=== PATIENT | male | born 1965 | race Caucasian/White ===

== ENCOUNTER 2017-02-11 12:07 | Emergency (ER) | payer OTHER ==
[~2017-02-11 12:07] MED LIST: CYCLOBENZAPRINE10 MG PO; IBUPROFEN400 MG PO; METOPROLOL TART25 MG PO; PERCOCET1 TA1 PO; SIMVASTATIN40 MG
--- NOTE | 2017-02-11 15:55 | DIAGNOSTIC IMAGING REPORT ---
PROCEDURE: ABDOMEN/PELVIS WITH CONTRAST CLINICAL INDICATION: ABDOMINAL PAIN right flank and right lower quadrant pain. TECHNIQUE: 125 ml of Isovue 300 were injected intravenously and axial images were obtained of the abdomen and pelvis with sagittal and coronal reformations. COMPARISON: None. FINDINGS: ABDOMEN: Minor circumferential distal esophageal thickening and edema. Clear lung bases. Normal sized heart. No hiatal hernia. Multiple indeterminate cystic structures arising from the right kidney, largest arising from the upper pole measuring 5.6 cm with Hounsfield units of 25. Tiny cortical cysts in the left kidney. The liver, gallbladder, adrenal glands, and pancreas are normal. Sub-centimeter ill-defined hypodensity in the cranial portion of the spleen. The abdominal aorta is normal in its course and caliber. Trace atherosclerosis. There are no suspicious calcifications, retroperitoneal adenopathy or masses. The stomach, upper bowel loops, and mesentery are normal. Intact anterior abdominal wall. No free fluid or inflammation. PELVIS: Multiple surgical tacks of bilateral inguinal hernia repairs. The appendix and pelvic small bowel loops are normal. Normal to minimally increased amount of stool in the colon and rectum. The prostate gland, seminal vesicles, urinary bladder, and pelvic vessels are normal. No adenopathy, free fluid, or pelvic mass. Intact osseous structures. IMPRESSION: 1. No acute process. 2. Mild distal esophageal thickening and edema suggestive of esophagitis. 3. Bilateral renal cystic structures, probably simple cysts but indeterminate given the presence of intravenous contrast. 4. Bilateral inguinal hernia repairs. 5. Findings called to the emergency room. All CT scans at this facility use dose modulation, iterative reconstruction, and/or weight-based dosing when appropriate to reduce radiation dose to as low as reasonably achievable.
--- NOTE | 2017-02-11 16:16 | ED NURSING NOTES ---
Clinical Report - Nurses [facility] [address] [place] [address] 02/11/2017 12:09 Patient: CORINA YATES TRIAGE Triage time 12:16. Acuity: LEVEL 3. Chief Complaint: ABDOMINAL PAIN. SEPSIS SCREEN: Sepsis Screen. Negative (no infection suspected/documented). --12:23 Kenyatta Avendano R.N. 12:16 02/11/17. BP: 120/75. HR: 80. RR: 16. O2 saturation: 98%. Temp: 98.3 F. Pain level now: 05/19. --12:23 Kenyatta Avendano R.N. Weight: 95.2 kg stated. Height/Length: 73 inches Per Patient. BMI: 27.7. --12:18 Kenyatta Avendano R.N. Medications Metoprolol Tartrate Oral 50 mg, daily . Simvastatin Oral 20 mg, daily. --12:20 Kenyatta Avendano R.N. BusPIRone HCl Oral 50 mg, daily as needed. --12:21 Kenyatta Avendano R.N. Sertraline HCl Oral, as needed. --12:21 Kenyatta Avendano R.N. Allergies No Known Drug Allergy. --12:20 Kenyatta Avendano R.N. History Arrived by private vehicle. Historian: patient. Primary physician ([facility]). Worsened while emotionally upset. Symptoms still present (about 3 weeks ago). Relates location as in the right abdomen. He has had nausea. It is described as radiating to the right lower back. 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 (was given trazadone). PAST MEDICAL HX: Immunizations: up-to-date. SOCIAL HX: Never smoker. Occasional alcohol use. Patient is a recovering alcoholic. No drug use. SELF HARM ASSESSMENT: A self harm assessment was performed. The patient answered "no" to the question "Do you have thoughts of harming or killing yourself?". FALL RISK ASSESSMENT: Fall risk assessment completed. No fall risk identified. NUTRITIONAL RISK ASSESSMENT: The nutritional risk assessment revealed no deficiencies. FUNCTIONAL ASSESSMENT: Functional assessment: no impairments noted. LEARNING NEEDS ASSESSMENT: The learning needs assessment revealed no barriers. SKIN INTEGRITY ASSESSMENT: Skin integrity risk assessment completed. No skin integrity risk identified. --12:23 Kenyatta Avendano R.N. Interventions ID band on patient. To room. --12:23 Kenyatta Avendano R.N. PHYSICAL ASSESSMENT Ambulatory to room. Patient gowned. GENERAL / NEURO / PSYCH: Alert. Oriented X 4. Appears in no acute distress. RESPIRATORY: Respirations not labored. CVS: Normal sinus rhythm noted. Capillary refill less than 2 seconds. GI / : Abdominal tenderness. Rebound tenderness in the suprapubic area and lower abdomen. SKIN: Skin is warm and dry. --12:24 Kenyatta Avendano R.N. NURSING PROGRESS NOTES Patient gowned. Two patient identifiers checked. Call light placed in reach. Bed placed in lowest position. Brakes of bed on. Patient ready for evaluation- ED physician notified. --12:25 Kenyatta Avendano R.N. 12:42 02/11/2017 Site #1 started via IV in the right hand with an 20g angiocath, with aseptic technique and good blood return; one attempt. Blood drawn: rainbow set. Labeled in the presence of the patient and sent to the lab. Saline lock flushed with 10 mL saline. --12:42 Kenyatta Avendano R.N. 13:14 02/11/2017 Started bag #1 1000 mL IV Fluids IV NS (Saline); at 1000 mL/hr over 1 hour(s) via site #1 via IV pump. Allergies verified and confirmed 5 rights. IV patency established. IV site checked: no pain, redness, or swelling. IV flushed thoroughly pre- and post-medication administration. Completed per protocol. --13:14 Kenyatta Avendano R.N. 14:15. Patient ID band checked for patient name and birthdate: patient confirmed. Instructions provided to collect clean catch urine and patient verbalized understanding. Clean catch urine collected with return of yellow-colored clear urine; odor is normal; sample sent to lab for urinalysis and culture. Specimen labeled in the presence of the patient. --14:27 Libby Lucero R.N. 15:01 02/11/17. Patient walked to AR with tech. --15:01 Charley Page R.N. <<KODY ENTRY-- 15:26 02/11/2017 Two (2) unsuccessful IV access attempts including the right wrist and left hand. Applied bandaid. --15:41 Kenyatta Avendano R.N. --END STRIKE>> Charted on wrong patient. --15:42 Kenyatta Avendano R.N. <<STRICKEN ENTRY-- 15:33 02/11/2017 IV Saline Lock Drip IV Discontinued: bag #1 completed. Total amount infused: 1000 mL. --15:33 Kenyatta Avendano R.N. --END STRIKE>> Correction. --15:34 Kenyatta Avendano R.N. 15:34 02/11/2017 IV Fluids IV NS Discontinued: bag #1 completed. Total amount infused: 1000 mL. --15:34 Kenyatta Avendano R.N. 15:38 02/11/2017 Started bag #2 1000 mL IV Fluids IV NS (Saline); at 1000 mL/hr over 1 hour(s) via site #1 --15:38 Kenyatta Avendano R.N. Patient walked back to ED from AR with tech. ([id number]). --15:38 Kenyatta Avendano R.N. DISPOSITION / DISCHARGE 16:38 02/11/2017 Site #1 removed upon discharge. Pressure dressing applied. --16:38 Kenyatta Avendano R.N. 16:38 02/11/2017 IV Fluids IV NS Discontinued: bag #2 discontinued upon discharge. Total amount infused: 900 mL. --16:38 Kenyatta Avendano R.N. 16:37 02/11/17. BP: 122/78. HR: 80. RR: 16. O2 saturation: 98%. Temp: 97.7 F. Pain level now: 04/18. --16:40 Kenyatta Avendano R.N. Discharge instructions provided and reviewed with the patient. Reviewed medication(s). Note given. Patient verbalized understanding. Written instructions provided in [place]. The patient was discharged by the physician. He was discharged home and accompanied by family. He left the Emergency Department ambulatory and via private vehicle. Family member driving. --16:40 Kenyatta Avendano R.N. Departure time: 16:40. --16:40 Kenyatta Avendano R.N. Locked/Released at 02/11/2017 19:25 by Kenyatta Avendano R.N.
--- NOTE | 2017-02-11 16:16 | ED CLINICAL REPORT ---
Clinical Report - Physicians/Mid Levels [facility] [address] [place] [address] 02/11/2017 12:09 Patient: CORINA YATES Time Seen: 12:29. Arrived- By private vehicle. Historian- patient. HISTORY OF PRESENT ILLNESS Chief Complaint: FLANK PAIN. At its maximum, severity described as 10 / 10. When seen in the E.D., it was gone. Modifying factors- worsened by movement, walking and cough. Relieved by rest. It is described as sharp and it is described as located in the right flank and radiating to the groin. This started about 3 weeks ago. It was abrupt in onset and has been intermittent and waxing/waning. No nausea, loss of appetite, vomiting or diarrhea. No recent travel. REVIEW OF SYSTEMS No chills, fever, sweats, calf pain or chest pain. No pedal edema, black stools, bloody stools, constipation or diarrhea. No nausea, vomiting or urinary problems. He has had a cough. He has had mild difficulty breathing (chronically). It has been similar to previous symptoms. All systems otherwise negative, except as recorded above. PAST HISTORY PCP - [facility]. Problems: Paresthesia. Stress. Mandibular Fracture. Contusion. Radius Fracture. Fall. AC Joint Separation. Suicidal Ideation. Sprain. Chest Pain. Fractured Metacarpal. Hypercholesterolemia. Hyperlipidemia. Alcoholism. Hypertension. Alcohol Intoxication. Substance Abuse. Additional Surgeries: Finger amputation, left index. Hernia Repair. Inguinal Hernia Repair. Medications: Sertraline HCl Oral, as needed. BusPIRone HCl Oral 50 mg, daily as needed. Metoprolol Tartrate Oral 50 mg, daily . Simvastatin Oral 20 mg, daily. Allergies: No Known Drug Allergy. SOCIAL HISTORY Never smoker. Alcohol use. Patient is a longstanding alcoholic. No drug use. FAMILY HISTORY Cancer in first-degree relative (father and sibling). mother due to EtOH. ADDITIONAL NOTES The nursing notes have been reviewed. PHYSICAL EXAM Vital Signs: 02/11/2017 12:16 BP: 120/75. HR: 80. RR: 16. O2 saturation: 98%. Temp: 98.3 F. Pain level now: 05/19. Have been reviewed. Appearance: Alert. Eyes: Pupils equal, round and reactive to light. ENT: Pharynx normal. Neck: Normal inspection. Neck supple. CVS: Normal heart rate and rhythm. Heart sounds normal. Respiratory: No respiratory distress. Breath sounds normal. Abdomen: Soft. Mild tenderness in the right lower quadrant. Bowel sounds normal. No organomegaly. No mass. Back: Normal inspection. No CVA tenderness. Skin: Skin warm and dry. Normal skin color. Normal skin turgor. Extremities: Extremities exhibit normal ROM. No calf tenderness. No lower extremity edema. LABS, X-RAYS, AND EKG Abdominal CT: IMPRESSION: 1. No acute process. 2. Mild distal esophageal thickening and edema suggestive of esophagitis. 3. Bilateral renal cystic structures, probably simple cysts but indeterminate given the presence of intravenous contrast. 4. Bilateral inguinal hernia repairs. The study was interpreted contemporaneously by me and discussed with the radiologist. Laboratory Tests: UA-Culture if indicated: (DEENA: 02/11/2017 14:15) ( [facility] 02/11/2017 14:35) Final results Test Result Flag Units (Reference) URINE COLOR YELLOW URINE APPEARANCE CLEAR URINE GLUCOSE NEGATIVE (NEGATIVE) URINE BILIRUBIN NEGATIVE (NEGATIVE) URINE KETONE NEGATIVE (NEGATIVE) URINE SPECIFIC GRAVITY 1.015 (1.010-1.030) URINE PH 7.5 (5.0-8.0) URINE PROTEIN NEGATIVE (NEGATIVE) URINE UROBILINOGEN 0.2 EU/dL (0.2-1.0) URINE NITRITE NEGATIVE (NEGATIVE) URINE BLOOD NEGATIVE (NEGATIVE) URINE LEUK ESTERASE TRACE (NEGATIVE) URINE RBC NONE SEEN rbc/hpf (0-1) URINE WBC 0-1 wbc/hpf (0-1) URINE EPITHELIAL CELLS RARE EPI/hpf (0-5) URINE BACTERIA NONE SEEN (NONE SEEN) URINE COMMENT CULTURE INDICATED URINE CULTURES ARE SET-UP BASED ON THE FOLLOWING CRITERIA:POSITIVE NITRITEPOSITIVE LEUKOCYTE ESTERASEGREATER THAN 10 WHITE BLOOD CELLSMODERATE (2+) OR GREATER BACTERIA CBC w Diff: (DEENA: 02/11/2017 12:40) ( [facility] 02/11/2017 12:51) Final results Test Result Flag Units (Reference) WHITE BLOOD COUNT 3.9 L K/uL (4.5-11.5) RED BLOOD COUNT 4.41 L M/uL (4.50-5.90) HEMOGLOBIN 13.7 gm/dL (13.5-17.5) HEMATOCRIT 40.4 L % (41.0-53.0) MEAN CELL VOLUME 92 fL (80-100) MEAN CORPUSCULAR HGB 31 pg (26-34) MEAN CORPUSCULAR HGB CONC 34 g/dL (31-37) RED CELL DISTRIBUTION WIDTH 16.2 H % (11.6-14.8) PLATELET COUNT 171 K/uL (150-400) NEUTROPHIL % 37.1 L % (50-75) LYMPH % 50.1 H % (25-40) MONO % 9.6 % (3-14) EOSINOPHIL % 2.1 % (0-4) BASOPHIL % 1.1 % (0-2) CMP: (DEENA: 02/11/2017 12:40) ( Msg[facility]cvd 02/11/2017 13:02) Final results Test Result Flag Units (Reference) GLUCOSE 91 mg/dL (70-110) BUN 11 mg/dL (7-18) CREATININE 0.8 mg/dL (0.6-1.3) Estimated GFR >60 mL/min Estimated GFR- >60 mL/min Note: Persistent reduction over 3 months in eGFR<60 mL/min/1.73 m2 defines CKD. Patients with eGFR values>=60 mL/min/1.73 m2 may also have CKD if evidence ofpersistent proteinuria. Additional information may be foundat www.kidney.org. SODIUM 144 mmol/L (136-145) POTASSIUM 3.8 mmol/L (3.5-5.1) CHLORIDE 105 mmol/L (98-107) CARBON DIOXIDE 32 mmol/L (21-32) CALCIUM 8.6 mg/dL (8.5-10.1) TOTAL PROTEIN 7.4 g/dL (6.4-8.2) ALBUMIN 4.0 g/dL (3.3-5.0) BILIRUBIN, TOTAL 0.2 mg/dL (0.0-1.0) ALKALINE PHOSPHATASE 58 U/L (46-116) AST (SGOT) 21 U/L (15-37) ALT (SGPT) 31 U/L (12-78) LIPASE 161 U/L (73-393) AMYLASE 58 U/L (25-115) . PROGRESS AND PROCEDURES Course of Care: Patient is stable. Patient/family counseled. Old medical records reviewed. Disposition: Discharged. Condition: stable. CLINICAL IMPRESSION Chronic right lower quadrant abdominal pain of unknown cause. Neutropenia. INSTRUCTIONS No driving or operating machinery while taking medication. Drink plenty of fluids. No alcohol. Warnings: Further evaluation is necessary in order to recheck abnormal lab. It is very important to follow up with a physician. GENERAL WARNINGS: Return or contact your physician immediately if your condition worsens or changes unexpectedly, if not improving as expected, or if other problems arise. Your Current Medications: CONTINUE TAKING THE FOLLOWING MEDICATIONS: BusPIRone HCl Oral : 50 mg daily, prn. Metoprolol Tartrate Oral : 50 mg daily. Sertraline HCl Oral : prn. Simvastatin Oral : 20 mg daily. Prescription Medications: Ultram 50 mg: take 1-2 orally every 6 hours as needed for pain. Dispense ten (10). Substitution is permissible. Follow-up: Follow up with a progress worker- as recommended by your primary care physician. Understanding of the discharge instructions verbalized by patient. Follow-up with: [facility], , , [address], , [place], [address] Follow up tomorrow. Call for an appointment. (Electronically signed by Len Bray MD 02/11/2017 20:26)
--- NOTE | 2017-02-11 16:16 | ED NURSING NOTES ---
Clinical Report - Nurses [facility] [address] [place] [address] 02/11/2017 12:09 Patient: CORINA YATES TRIAGE Triage time 12:16. Acuity: LEVEL 3. Chief Complaint: ABDOMINAL PAIN. SEPSIS SCREEN: Sepsis Screen. Negative (no infection suspected/documented). --12:23 Kenyatta Avendano R.N. 12:16 02/11/17. BP: 120/75. HR: 80. RR: 16. O2 saturation: 98%. Temp: 98.3 F. Pain level now: 05/19. --12:23 Kenyatta Avendano R.N. Weight: 95.2 kg stated. Height/Length: 73 inches Per Patient. BMI: 27.7. --12:18 Kenyatta Avendano R.N. Medications Metoprolol Tartrate Oral 50 mg, daily . Simvastatin Oral 20 mg, daily. --12:20 Kenyatta Avendano R.N. BusPIRone HCl Oral 50 mg, daily as needed. --12:21 Kenyatta Avendano R.N. Sertraline HCl Oral, as needed. --12:21 Kenyatta Avendano R.N. Allergies No Known Drug Allergy. --12:20 Kenyatta Avendano R.N. History Arrived by private vehicle. Historian: patient. Primary physician ([facility]). Worsened while emotionally upset. Symptoms still present (about 3 weeks ago). Relates location as in the right abdomen. He has had nausea. It is described as radiating to the right lower back. 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 (was given trazadone). PAST MEDICAL HX: Immunizations: up-to-date. SOCIAL HX: Never smoker. Occasional alcohol use. Patient is a recovering alcoholic. No drug use. SELF HARM ASSESSMENT: A self harm assessment was performed. The patient answered "no" to the question "Do you have thoughts of harming or killing yourself?". FALL RISK ASSESSMENT: Fall risk assessment completed. No fall risk identified. NUTRITIONAL RISK ASSESSMENT: The nutritional risk assessment revealed no deficiencies. FUNCTIONAL ASSESSMENT: Functional assessment: no impairments noted. LEARNING NEEDS ASSESSMENT: The learning needs assessment revealed no barriers. SKIN INTEGRITY ASSESSMENT: Skin integrity risk assessment completed. No skin integrity risk identified. --12:23 Kenyatta Avendano R.N. Interventions ID band on patient. To room. --12:23 Kenyatta Avendano R.N. PHYSICAL ASSESSMENT Ambulatory to room. Patient gowned. GENERAL / NEURO / PSYCH: Alert. Oriented X 4. Appears in no acute distress. RESPIRATORY: Respirations not labored. CVS: Normal sinus rhythm noted. Capillary refill less than 2 seconds. GI / : Abdominal tenderness. Rebound tenderness in the suprapubic area and lower abdomen. SKIN: Skin is warm and dry. --12:24 Kenyatta Avendano R.N. NURSING PROGRESS NOTES Patient gowned. Two patient identifiers checked. Call light placed in reach. Bed placed in lowest position. Brakes of bed on. Patient ready for evaluation- ED physician notified. --12:25 Kenyatta Avendano R.N. 12:42 02/11/2017 Site #1 started via IV in the right hand with an 20g angiocath, with aseptic technique and good blood return; one attempt. Blood drawn: rainbow set. Labeled in the presence of the patient and sent to the lab. Saline lock flushed with 10 mL saline. --12:42 Kenyatta Avendano R.N. 13:14 02/11/2017 Started bag #1 1000 mL IV Fluids IV NS (Saline); at 1000 mL/hr over 1 hour(s) via site #1 via IV pump. Allergies verified and confirmed 5 rights. IV patency established. IV site checked: no pain, redness, or swelling. IV flushed thoroughly pre- and post-medication administration. Completed per protocol. --13:14 Kenyatta Avendano R.N. 14:15. Patient ID band checked for patient name and birthdate: patient confirmed. Instructions provided to collect clean catch urine and patient verbalized understanding. Clean catch urine collected with return of yellow-colored clear urine; odor is normal; sample sent to lab for urinalysis and culture. Specimen labeled in the presence of the patient. --14:27 Libby Lucero R.N. 15:01 02/11/17. Patient walked to OR with tech. --15:01 Charley Page R.N. <<KODY ENTRY-- 15:26 02/11/2017 Two (2) unsuccessful IV access attempts including the right wrist and left hand. Applied bandaid. --15:41 Kenyatta Avendano R.N. --END STRIKE>> Charted on wrong patient. --15:42 Kenyatta Avendano R.N. <<STRICKEN ENTRY-- 15:33 02/11/2017 IV Saline Lock Drip IV Discontinued: bag #1 completed. Total amount infused: 1000 mL. --15:33 Kenyatta Avendano R.N. --END STRIKE>> Correction. --15:34 Kenyatta Avendano R.N. 15:34 02/11/2017 IV Fluids IV NS Discontinued: bag #1 completed. Total amount infused: 1000 mL. --15:34 Kenyatta Avendano R.N. 15:38 02/11/2017 Started bag #2 1000 mL IV Fluids IV NS (Saline); at 1000 mL/hr over 1 hour(s) via site #1 --15:38 Kenyatta Avendano R.N. Patient walked back to ED from OR with tech. ([id number]). --15:38 Kenyatta Avendano R.N. DISPOSITION / DISCHARGE 16:38 02/11/2017 Site #1 removed upon discharge. Pressure dressing applied. --16:38 Kenyatta Avendano R.N. 16:38 02/11/2017 IV Fluids IV NS Discontinued: bag #2 discontinued upon discharge. Total amount infused: 900 mL. --16:38 Kenyatta Avendano R.N. 16:37 02/11/17. BP: 122/78. HR: 80. RR: 16. O2 saturation: 98%. Temp: 97.7 F. Pain level now: 04/18. --16:40 Kenyatta Avendano R.N. Discharge instructions provided and reviewed with the patient. Reviewed medication(s). Note given. Patient verbalized understanding. Written instructions provided in [place]. The patient was discharged by the physician. He was discharged home and accompanied by family. He left the Emergency Department ambulatory and via private vehicle. Family member driving. --16:40 Kenyatta Avendano R.N. Departure time: 16:40. --16:40 Kenyatta Avendano R.N. Locked/Released at 02/11/2017 19:25 by Kenyatta Avendano R.N.
--- NOTE | 2017-02-11 16:16 | ED CLINICAL REPORT ---
Clinical Report - Physicians/Mid Levels [facility] [address] [place] [address] 02/11/2017 12:09 Patient: CORINA YATES Time Seen: 12:29. Arrived- By private vehicle. Historian- patient. HISTORY OF PRESENT ILLNESS Chief Complaint: FLANK PAIN. At its maximum, severity described as 10 / 10. When seen in the E.D., it was gone. Modifying factors- worsened by movement, walking and cough. Relieved by rest. It is described as sharp and it is described as located in the right flank and radiating to the groin. This started about 3 weeks ago. It was abrupt in onset and has been intermittent and waxing/waning. No nausea, loss of appetite, vomiting or diarrhea. No recent travel. REVIEW OF SYSTEMS No chills, fever, sweats, calf pain or chest pain. No pedal edema, black stools, bloody stools, constipation or diarrhea. No nausea, vomiting or urinary problems. He has had a cough. He has had mild difficulty breathing (chronically). It has been similar to previous symptoms. All systems otherwise negative, except as recorded above. PAST HISTORY PCP - [facility]. Problems: Paresthesia. Stress. Mandibular Fracture. Contusion. Radius Fracture. Fall. AC Joint Separation. Suicidal Ideation. Sprain. Chest Pain. Fractured Metacarpal. Hypercholesterolemia. Hyperlipidemia. Alcoholism. Hypertension. Alcohol Intoxication. Substance Abuse. Additional Surgeries: Finger amputation, left index. Hernia Repair. Inguinal Hernia Repair. Medications: Sertraline HCl Oral, as needed. BusPIRone HCl Oral 50 mg, daily as needed. Metoprolol Tartrate Oral 50 mg, daily . Simvastatin Oral 20 mg, daily. Allergies: No Known Drug Allergy. SOCIAL HISTORY Never smoker. Alcohol use. Patient is a longstanding alcoholic. No drug use. FAMILY HISTORY Cancer in first-degree relative (father and sibling). mother due to EtOH. ADDITIONAL NOTES The nursing notes have been reviewed. PHYSICAL EXAM Vital Signs: 02/11/2017 12:16 BP: 120/75. HR: 80. RR: 16. O2 saturation: 98%. Temp: 98.3 F. Pain level now: 05/19. Have been reviewed. Appearance: Alert. Eyes: Pupils equal, round and reactive to light. ENT: Pharynx normal. Neck: Normal inspection. Neck supple. CVS: Normal heart rate and rhythm. Heart sounds normal. Respiratory: No respiratory distress. Breath sounds normal. Abdomen: Soft. Mild tenderness in the right lower quadrant. Bowel sounds normal. No organomegaly. No mass. Back: Normal inspection. No CVA tenderness. Skin: Skin warm and dry. Normal skin color. Normal skin turgor. Extremities: Extremities exhibit normal ROM. No calf tenderness. No lower extremity edema. LABS, X-RAYS, AND EKG Abdominal CT: IMPRESSION: 1. No acute process. 2. Mild distal esophageal thickening and edema suggestive of esophagitis. 3. Bilateral renal cystic structures, probably simple cysts but indeterminate given the presence of intravenous contrast. 4. Bilateral inguinal hernia repairs. The study was interpreted contemporaneously by me and discussed with the radiologist. Laboratory Tests: UA-Culture if indicated: (DEENA: 02/11/2017 14:15) ( [facility] 02/11/2017 14:35) Final results Test Result Flag Units (Reference) URINE COLOR YELLOW URINE APPEARANCE CLEAR URINE GLUCOSE NEGATIVE (NEGATIVE) URINE BILIRUBIN NEGATIVE (NEGATIVE) URINE KETONE NEGATIVE (NEGATIVE) URINE SPECIFIC GRAVITY 1.015 (1.010-1.030) URINE PH 7.5 (5.0-8.0) URINE PROTEIN NEGATIVE (NEGATIVE) URINE UROBILINOGEN 0.2 EU/dL (0.2-1.0) URINE NITRITE NEGATIVE (NEGATIVE) URINE BLOOD NEGATIVE (NEGATIVE) URINE LEUK ESTERASE TRACE (NEGATIVE) URINE RBC NONE SEEN rbc/hpf (0-1) URINE WBC 0-1 wbc/hpf (0-1) URINE EPITHELIAL CELLS RARE EPI/hpf (0-5) URINE BACTERIA NONE SEEN (NONE SEEN) URINE COMMENT CULTURE INDICATED URINE CULTURES ARE SET-UP BASED ON THE FOLLOWING CRITERIA:POSITIVE NITRITEPOSITIVE LEUKOCYTE ESTERASEGREATER THAN 10 WHITE BLOOD CELLSMODERATE (2+) OR GREATER BACTERIA CBC w Diff: (DEENA: 02/11/2017 12:40) ( [facility] 02/11/2017 12:51) Final results Test Result Flag Units (Reference) WHITE BLOOD COUNT 3.9 L K/uL (4.5-11.5) RED BLOOD COUNT 4.41 L M/uL (4.50-5.90) HEMOGLOBIN 13.7 gm/dL (13.5-17.5) HEMATOCRIT 40.4 L % (41.0-53.0) MEAN CELL VOLUME 92 fL (80-100) MEAN CORPUSCULAR HGB 31 pg (26-34) MEAN CORPUSCULAR HGB CONC 34 g/dL (31-37) RED CELL DISTRIBUTION WIDTH 16.2 H % (11.6-14.8) PLATELET COUNT 171 K/uL (150-400) NEUTROPHIL % 37.1 L % (50-75) LYMPH % 50.1 H % (25-40) MONO % 9.6 % (3-14) EOSINOPHIL % 2.1 % (0-4) BASOPHIL % 1.1 % (0-2) CMP: (DEENA: 02/11/2017 12:40) ( MsgRcvd 02/11/2017 13:02) Final results Test Result Flag Units (Reference) GLUCOSE 91 mg/dL (70-110) BUN 11 mg/dL (7-18) CREATININE 0.8 mg/dL (0.6-1.3) Estimated GFR >60 mL/min Estimated GFR- >60 mL/min Note: Persistent reduction over 3 months in eGFR<60 mL/min/1.73 m2 defines CKD. Patients with eGFR values>=60 mL/min/1.73 m2 may also have CKD if evidence ofpersistent proteinuria. Additional information may be foundat www.kidney.org. SODIUM 144 mmol/L (136-145) POTASSIUM 3.8 mmol/L (3.5-5.1) CHLORIDE 105 mmol/L (98-107) CARBON DIOXIDE 32 mmol/L (21-32) CALCIUM 8.6 mg/dL (8.5-10.1) TOTAL PROTEIN 7.4 g/dL (6.4-8.2) ALBUMIN 4.0 g/dL (3.3-5.0) BILIRUBIN, TOTAL 0.2 mg/dL (0.0-1.0) ALKALINE PHOSPHATASE 58 U/L (46-116) AST (SGOT) 21 U/L (15-37) ALT (SGPT) 31 U/L (12-78) LIPASE 161 U/L (73-393) AMYLASE 58 U/L (25-115) . PROGRESS AND PROCEDURES Course of Care: Patient is stable. Patient/family counseled. Old medical records reviewed. Disposition: Discharged. Condition: stable. CLINICAL IMPRESSION Chronic right lower quadrant abdominal pain of unknown cause. Neutropenia. INSTRUCTIONS No driving or operating machinery while taking medication. Drink plenty of fluids. No alcohol. Warnings: Further evaluation is necessary in order to recheck abnormal lab. It is very important to follow up with a physician. GENERAL WARNINGS: Return or contact your physician immediately if your condition worsens or changes unexpectedly, if not improving as expected, or if other problems arise. Your Current Medications: CONTINUE TAKING THE FOLLOWING MEDICATIONS: BusPIRone HCl Oral : 50 mg daily, prn. Metoprolol Tartrate Oral : 50 mg daily. Sertraline HCl Oral : prn. Simvastatin Oral : 20 mg daily. Prescription Medications: Ultram 50 mg: take 1-2 orally every 6 hours as needed for pain. Dispense ten (10). Substitution is permissible. Follow-up: Follow up with a digital retoucher- as recommended by your primary care physician. Understanding of the discharge instructions verbalized by patient. Follow-up with: [facility], , , [address], , [place], [id number] Follow up tomorrow. Call for an appointment. (Electronically signed by Len Bray MD 02/11/2017 20:26)
--- NOTE | 2017-02-11 16:17 | ED ORDER SUMMARY ---
..... Patient: CORINA YATES OrderSheet [facility] VisitID: [id number] [place] [address] 51y, M Registration Date/Time: 02/11/2017 ORDER SHEET Weight: 95.2 kg (stated) Allergies: No Known Drug Allergy GENERAL ORDERS: CBC w Diff Urgent (12:30 02/11/2017 Gopal ROSARIO) (Ack 12:31 Ainsley) (13:01 JBest R.N.) CMP Urgent (12:02/11/2017 Gopal ROSARIO) (Ack 12:31 Ainsley) (13:01 JBest R.N.) UA-Culture if indicated Urgent (12:30 02/11/2017 Gopal ROSARIO) (Ack 12:31 Ainsley) (14:19 Ainsley) Amylase Urgent (12:30 02/11/2017 Gopal ROSARIO) (Ack 12:31 Ainsley) (13:01 JBest R.N.) Lipase Urgent (12:02/11/2017 Gopal ROSARIO) (Ack 12:31 Ainsley) (13:01 JBest R.N.) CT Abd/Pel w Cont (No) (See report) Urgent (14:53 02/11/2017 Gopal ROSARIO) (Ack 14:59 Ainsley) (15:12 Ainsley) MEDICATION ORDERS: IV FLUIDS: IV Saline Lock (12:30 02/11/2017 Gopal ROSARIO) (12:42 JBest R.N.) IV NS : initial bolus 1000 mL (1000 mL/hr), then 1000 mL/hr for X2 (NOW); Urgent (13:04 02/11/2017 Gopal ROSARIO) (13:14 JBest R.N.) ORDER SHEET NOTES: [Electronically signed by Kenyatta Avendano R.N. (19:02/11/2017)] [Electronically signed by Len Bray MD (20:26 02/11/2017)] [Electronically locked/signed by Kenyatta Avendano R.N. (:02/11/2017)]
--- NOTE | 2017-02-11 16:17 | ED ORDER SUMMARY ---
..... Patient: CORINA YATES OrderSheet [facility] VisitID: [id number] [place] [address] 51y, M Registration Date/Time: 02/11/2017 ORDER SHEET Weight: 95.2 kg (stated) Allergies: No Known Drug Allergy GENERAL ORDERS: CBC w Diff Urgent (12:30 02/11/2017 Gopal ROSARIO) (Ack 12:31 Ainsley) (13:01 JBest R.N.) CMP Urgent (12:02/11/2017 Gopal ROSARIO) (Ack 12:31 Ainsley) (13:01 JBest R.N.) UA-Culture if indicated Urgent (12:30 02/11/2017 Gopal ROSARIO) (Ack 12:31 Ainsley) (14:19 Ainsley) Amylase Urgent (12:30 02/11/2017 Gopal ROSARIO) (Ack 12:31 Ainsley) (13:01 JBest R.N.) Lipase Urgent (12:02/11/2017 Gopal ROSARIO) (Ack 12:31 Ainsley) (13:01 JBest R.N.) CT Abd/Pel w Cont (No) (See report) Urgent (14:53 02/11/2017 Gopal ROSARIO) (Ack 14:59 Ainsley) (15:12 Ainsley) MEDICATION ORDERS: IV FLUIDS: IV Saline Lock (12:30 02/11/2017 Gopal ROSARIO) (12:42 JBest R.N.) IV NS : initial bolus 1000 mL (1000 mL/hr), then 1000 mL/hr for X2 (NOW); Urgent (13:04 02/11/2017 Gopal ROSARIO) (13:14 JBest R.N.) ORDER SHEET NOTES: [Electronically signed by Kenyatta Avendano R.N. (19:02/11/2017)] [Electronically signed by Len Bray MD (20:26 02/11/2017)] [Electronically locked/signed by Kenyatta Avendano R.N. (:02/11/2017)]
--- NOTE | 2017-02-11 20:26 | ED DISCHARGE INSTRUCTIONS ---
Patient: CORINA YATES General Instructions [facility] VisitID: [id number] [address] [place] [address] 51y, M Registration Date/Time: 02/11/2017 Chronic right lower quadrant abdominal pain of unknown cause. Neutropenia. INSTRUCTIONS No driving or operating machinery while taking medication. Drink plenty of fluids. No alcohol. Warnings: Further evaluation is necessary in order to recheck abnormal lab. It is very important to follow up with a physician. GENERAL WARNINGS: Return or contact your physician immediately if your condition worsens or changes unexpectedly, if not improving as expected, or if other problems arise. Your Current Medications: CONTINUE TAKING THE FOLLOWING MEDICATIONS: BusPIRone HCl Oral : 50 mg daily, prn. Metoprolol Tartrate Oral : 50 mg daily. Sertraline HCl Oral : prn. Simvastatin Oral : 20 mg daily. Prescription Medications: Ultram 50 mg: take 1-2 orally every 6 hours as needed for pain. Dispense ten (10). Substitution is permissible. Follow-up: Follow up with a electronic integrated systems mechanic- as recommended by your primary care physician. Understanding of the discharge instructions verbalized by patient. Follow-up with: [facility], , , [address], [place], [address] Follow up tomorrow. Call for an appointment. ADDITIONAL INFORMATION Abdominal Pain,Uncertain Cause [Male] Based on your visit today, the exact cause of your abdominalpain is not clear. Your exam and tests do not indicate a dangerous cause at this time. However, the signs of a serious problem may take more time to appear. Although your evaluation was reassuring today, sometimes early in the course of many conditions, exam and lab tests can appear normal. Therefore, it is important for you to watch for any new symptoms or worsening of your condition. Causes It may not be obvious what caused your symptoms. Pay attention to things that do seem to make your symptoms worse or better and discuss this with your doctor when you follow up. Diagnosis The evaluation of abdominal pain in the emergency department may onlyrequire an exam by the doctor or it may include blood, urine or imaging studies, depending on many factors. Sometimes exams and tests can identify a cause but in many cases, a clear cause is not found. Further testing at follow up visits may help to suggest a clear diagnosis. Home Care Rest as much as possible until your next exam. Try to avoid any medications (unless otherwise directed by your doctor), foods, activities, or other factors that you may have contributed to your symptoms. Try to eat foods that you know that you have tolerated well in the past. Certain diets may be recommended for some conditions that cause abdominal pain. However, since the cause of your symptoms may not be clear, discuss your diet more with your primary care provider or specialist for further recommendations. Eating several small meals per day as opposed to 2 or 3 larger meals may help. Monitor closely for anything that may make your symptoms worse or better. Pay close attention to symptoms below that may indicate worsening of your condition. Follow Up and Precautions See your doctoras instructed or sooneror if your symptoms are not improving.In some cases, you may need more testing. When to Seek Medical Attention Contact your doctor or see medical attention ifany of the following occur: Pain is becoming worse You are unable to take your medications due to excessive vomiting Swelling of the abdomen Fever of 100.4F (38C) or higher, or as directed by your health care provider Blood in vomit or bowel movements (dark red or black color) Jaundice (yellow color of eyes and skin) New onset of weakness, dizziness or fainting New onset of chest, arm, back, neck or jaw pain Symptoms With Uncertain Cause [Adult] Based on the exam and any tests that were performed today, the exact cause of your symptoms is not certain. While your condition does not seem serious, the signs of a serious problem may take more time to appear. Therefore, it is important for you to watch for any new symptoms or worsening of your condition.Follow up with your doctor or this facility, as directed.A repeat physical exam or additional testing at a later time may uncover a cause for your symptoms that is not evident today. Home Care: Resume your usual activities and diet when this feels comfortable to do so. Follow Up with your doctor, or as advised by our staff.Contact your doctor sooner if your symptoms do not begin to improve in the next few days. [NOTE: If you had an x-ray, CT scan, ultrasound, or ECG (electrocardiogram), it will be reviewed by a specialist. You will be notified of any new findings that may affect your care.] Get Prompt Medical Attention if any of the following occur: Current symptoms get worse New symptoms appear Tramadol Hydrochloride Oral tablet What is this medicine? TRAMADOL (TRA ma dole) is a pain reliever. It is used to treat moderate to severe pain in adults. How should I use this medicine? Take this medicine by mouth with a full glass of water. Follow the directions on the prescription label. If the medicine upsets your stomach, take it with food or milk. Do not take more medicine than you are told to take. Talk to your etched circuit processor regarding the use of this medicine in children. Special care may be needed. What side effects may I notice from receiving this medicine? Side effects that you should report to your doctor or health career coach as soon as possible: allergic reactions like skin rash, itching or hives, swelling of the face, lips, or tongue breathing difficulties, wheezing confusion itching light headedness or fainting spells redness, blistering, peeling or loosening of the skin, including inside the mouth seizures Side effects that usually do not require medical attention (report to your doctor or health career coach if they continue or are bothersome): constipation dizziness drowsiness headache nausea, vomiting What may interact with this medicine? Do not take this medicine with any of the following medications: MAOIs like Carbex, Eldepryl, Marplan, Nardil, and Parnate This medicine may also interact with the following medications: alcohol or medicines that contain alcohol antihistamines benzodiazepines bupropion carbamazepine or oxcarbazepine clozapine cyclobenzaprine digoxin furazolidone linezolid medicines for depression, anxiety, or psychotic disturbances medicines for migraine headache like almotriptan, eletriptan, frovatriptan, naratriptan, rizatriptan, sumatriptan, zolmitriptan medicines for pain like pentazocine, buprenorphine, butorphanol, meperidine, nalbuphine, and propoxyphene medicines for sleep muscle relaxants naltrexone phenobarbital phenothiazines like perphenazine, thioridazine, chlorpromazine, mesoridazine, fluphenazine, prochlorperazine, promazine, and trifluoperazine procarbazine warfarin What if I miss a dose? If you miss a dose, take it as soon as you can. If it is almost time for your next dose, take only that dose. Do not take double or extra doses. Where should I keep my medicine? Keep out of the reach of children. Store at room temperature between 15 and 30 degrees C (59 and 86 degrees F). Keep container tightly closed. Throw away any unused medicine after the expiration date. What should I tell my health care provider before I take this medicine? They need to know if you have any of these conditions: brain tumor depression drug abuse or addiction head injury if you frequently drink alcohol containing drinks kidney disease or trouble passing urine liver disease lung disease, asthma, or breathing problems seizures or epilepsy suicidal thoughts, plans, or attempt; a previous suicide attempt by you or a family member an unusual or allergic reaction to tramadol, codeine, other medicines, foods, dyes, or preservatives or trying to get breast-feeding What should I watch for while using this medicine? Tell your doctor or health career coach if your pain does not go away, if it gets worse, or if you have new or a different type of pain. You may develop tolerance to the medicine. Tolerance means that you will need a higher dose of the medicine for pain relief. Tolerance is normal and is expected if you take this medicine for a long time. Do not suddenly stop taking your medicine because you may develop a severe reaction. Your body becomes used to the medicine. This does NOT mean you are addicted. Addiction is a behavior related to getting and using a drug for a non-medical reason. If you have pain, you have a medical reason to take pain medicine. Your doctor will tell you how much medicine to take. If your doctor wants you to stop the medicine, the dose will be slowly lowered over time to avoid any side effects. You may get drowsy or dizzy. Do not drive, use machinery, or do anything that needs mental alertness until you know how this medicine affects you. Do not stand or sit up quickly, especially if you are an older patient. This reduces the risk of dizzy or fainting spells. Alcohol can increase or decrease the effects of this medicine. Avoid alcoholic drinks. You may have constipation. Try to have a bowel movement at least every 2 to 3 days. If you do not have a bowel movement for 3 days, call your doctor or health career coach. Your mouth may get dry. Chewing sugarless gum or sucking hard candy, and drinking plenty of water may help. Contact your doctor if the problem does not go away or is severe. You have been given the following additional information: Abdominal Pain, Unknown Cause, (Male) Symptoms With Uncertain Cause Tramadol Hydrochloride Oral tablet No driving or operating machinery while taking medication. (Electronically signed by Len Bray MD 02/11/2017 20:26)
--- NOTE | 2017-02-11 20:26 | ED DISCHARGE INSTRUCTIONS ---
Patient: CORINA YATES General Instructions [facility] VisitID: [id number] [address] [place] [address] 51y, M Registration Date/Time: 02/11/2017 Chronic right lower quadrant abdominal pain of unknown cause. Neutropenia. INSTRUCTIONS No driving or operating machinery while taking medication. Drink plenty of fluids. No alcohol. Warnings: Further evaluation is necessary in order to recheck abnormal lab. It is very important to follow up with a physician. GENERAL WARNINGS: Return or contact your physician immediately if your condition worsens or changes unexpectedly, if not improving as expected, or if other problems arise. Your Current Medications: CONTINUE TAKING THE FOLLOWING MEDICATIONS: BusPIRone HCl Oral : 50 mg daily, prn. Metoprolol Tartrate Oral : 50 mg daily. Sertraline HCl Oral : prn. Simvastatin Oral : 20 mg daily. Prescription Medications: Ultram 50 mg: take 1-2 orally every 6 hours as needed for pain. Dispense ten (10). Substitution is permissible. Follow-up: Follow up with a grievance and appeals specialist- as recommended by your primary care physician. Understanding of the discharge instructions verbalized by patient. Follow-up with: [facility], , , [address], [place], [address] Follow up tomorrow. Call for an appointment. ADDITIONAL INFORMATION Abdominal Pain,Uncertain Cause [Male] Based on your visit today, the exact cause of your abdominalpain is not clear. Your exam and tests do not indicate a dangerous cause at this time. However, the signs of a serious problem may take more time to appear. Although your evaluation was reassuring today, sometimes early in the course of many conditions, exam and lab tests can appear normal. Therefore, it is important for you to watch for any new symptoms or worsening of your condition. Causes It may not be obvious what caused your symptoms. Pay attention to things that do seem to make your symptoms worse or better and discuss this with your doctor when you follow up. Diagnosis The evaluation of abdominal pain in the emergency department may onlyrequire an exam by the doctor or it may include blood, urine or imaging studies, depending on many factors. Sometimes exams and tests can identify a cause but in many cases, a clear cause is not found. Further testing at follow up visits may help to suggest a clear diagnosis. Home Care Rest as much as possible until your next exam. Try to avoid any medications (unless otherwise directed by your doctor), foods, activities, or other factors that you may have contributed to your symptoms. Try to eat foods that you know that you have tolerated well in the past. Certain diets may be recommended for some conditions that cause abdominal pain. However, since the cause of your symptoms may not be clear, discuss your diet more with your primary care provider or specialist for further recommendations. Eating several small meals per day as opposed to 2 or 3 larger meals may help. Monitor closely for anything that may make your symptoms worse or better. Pay close attention to symptoms below that may indicate worsening of your condition. Follow Up and Precautions See your doctoras instructed or sooneror if your symptoms are not improving.In some cases, you may need more testing. When to Seek Medical Attention Contact your doctor or see medical attention ifany of the following occur: Pain is becoming worse You are unable to take your medications due to excessive vomiting Swelling of the abdomen Fever of 100.4F (38C) or higher, or as directed by your health care provider Blood in vomit or bowel movements (dark red or black color) Jaundice (yellow color of eyes and skin) New onset of weakness, dizziness or fainting New onset of chest, arm, back, neck or jaw pain Symptoms With Uncertain Cause [Adult] Based on the exam and any tests that were performed today, the exact cause of your symptoms is not certain. While your condition does not seem serious, the signs of a serious problem may take more time to appear. Therefore, it is important for you to watch for any new symptoms or worsening of your condition.Follow up with your doctor or this facility, as directed.A repeat physical exam or additional testing at a later time may uncover a cause for your symptoms that is not evident today. Home Care: Resume your usual activities and diet when this feels comfortable to do so. Follow Up with your doctor, or as advised by our staff.Contact your doctor sooner if your symptoms do not begin to improve in the next few days. [NOTE: If you had an x-ray, CT scan, ultrasound, or ECG (electrocardiogram), it will be reviewed by a specialist. You will be notified of any new findings that may affect your care.] Get Prompt Medical Attention if any of the following occur: Current symptoms get worse New symptoms appear Tramadol Hydrochloride Oral tablet What is this medicine? TRAMADOL (TRA ma dole) is a pain reliever. It is used to treat moderate to severe pain in adults. How should I use this medicine? Take this medicine by mouth with a full glass of water. Follow the directions on the prescription label. If the medicine upsets your stomach, take it with food or milk. Do not take more medicine than you are told to take. Talk to your engine room operator regarding the use of this medicine in children. Special care may be needed. What side effects may I notice from receiving this medicine? Side effects that you should report to your doctor or health urgent care physician assistant as soon as possible: allergic reactions like skin rash, itching or hives, swelling of the face, lips, or tongue breathing difficulties, wheezing confusion itching light headedness or fainting spells redness, blistering, peeling or loosening of the skin, including inside the mouth seizures Side effects that usually do not require medical attention (report to your doctor or health urgent care physician assistant if they continue or are bothersome): constipation dizziness drowsiness headache nausea, vomiting What may interact with this medicine? Do not take this medicine with any of the following medications: MAOIs like Carbex, Eldepryl, Marplan, Nardil, and Parnate This medicine may also interact with the following medications: alcohol or medicines that contain alcohol antihistamines benzodiazepines bupropion carbamazepine or oxcarbazepine clozapine cyclobenzaprine digoxin furazolidone linezolid medicines for depression, anxiety, or psychotic disturbances medicines for migraine headache like almotriptan, eletriptan, frovatriptan, naratriptan, rizatriptan, sumatriptan, zolmitriptan medicines for pain like pentazocine, buprenorphine, butorphanol, meperidine, nalbuphine, and propoxyphene medicines for sleep muscle relaxants naltrexone phenobarbital phenothiazines like perphenazine, thioridazine, chlorpromazine, mesoridazine, fluphenazine, prochlorperazine, promazine, and trifluoperazine procarbazine warfarin What if I miss a dose? If you miss a dose, take it as soon as you can. If it is almost time for your next dose, take only that dose. Do not take double or extra doses. Where should I keep my medicine? Keep out of the reach of children. Store at room temperature between 15 and 30 degrees C (59 and 86 degrees F). Keep container tightly closed. Throw away any unused medicine after the expiration date. What should I tell my health care provider before I take this medicine? They need to know if you have any of these conditions: brain tumor depression drug abuse or addiction head injury if you frequently drink alcohol containing drinks kidney disease or trouble passing urine liver disease lung disease, asthma, or breathing problems seizures or epilepsy suicidal thoughts, plans, or attempt; a previous suicide attempt by you or a family member an unusual or allergic reaction to tramadol, codeine, other medicines, foods, dyes, or preservatives or trying to get breast-feeding What should I watch for while using this medicine? Tell your doctor or health urgent care physician assistant if your pain does not go away, if it gets worse, or if you have new or a different type of pain. You may develop tolerance to the medicine. Tolerance means that you will need a higher dose of the medicine for pain relief. Tolerance is normal and is expected if you take this medicine for a long time. Do not suddenly stop taking your medicine because you may develop a severe reaction. Your body becomes used to the medicine. This does NOT mean you are addicted. Addiction is a behavior related to getting and using a drug for a non-medical reason. If you have pain, you have a medical reason to take pain medicine. Your doctor will tell you how much medicine to take. If your doctor wants you to stop the medicine, the dose will be slowly lowered over time to avoid any side effects. You may get drowsy or dizzy. Do not drive, use machinery, or do anything that needs mental alertness until you know how this medicine affects you. Do not stand or sit up quickly, especially if you are an older patient. This reduces the risk of dizzy or fainting spells. Alcohol can increase or decrease the effects of this medicine. Avoid alcoholic drinks. You may have constipation. Try to have a bowel movement at least every 2 to 3 days. If you do not have a bowel movement for 3 days, call your doctor or health urgent care physician assistant. Your mouth may get dry. Chewing sugarless gum or sucking hard candy, and drinking plenty of water may help. Contact your doctor if the problem does not go away or is severe. You have been given the following additional information: Abdominal Pain, Unknown Cause, (Male) Symptoms With Uncertain Cause Tramadol Hydrochloride Oral tablet No driving or operating machinery while taking medication. (Electronically signed by Len Bray MD 02/11/2017 20:26)
--- NOTE | 2017-02-11 20:27 | ED MED RECONCILIATION SUMMARY ---
Patient: CORINA YATES Medication Reconciliation Report [facility] VisitID: [id number] [place] [address] 51y, M Registration Date/Time: 02/11/2017 Weight: 95.2 kg Height/Length: 73 in. BMI: 27.7 ALLERGIES: No Known Drug Allergy The patient's Home Medications are listed below: CONTINUE TAKING THE FOLLOWING MEDICATIONS: BusPIRone HCl Oral 50 mg, daily Metoprolol Tartrate Oral 50 mg, daily Sertraline HCl Oral Simvastatin Oral 20 mg, daily The source(s) of the original Home Medication information: Not obtained. The following Medications were given to the patient in the Emergency Department: IV NS IV Fluids bolus 0, then 1000 mL/hr, administered: 02/11/2017 1:14:00 PM IV NS IV Fluids bolus 0, then 1000 mL/hr, administered: 02/11/2017 3:38:00 PM The following Medications were prescribed to the patient: Ultram 50 mg: take 1-2 orally every 6 hours as needed for pain. Dispense ten (10). Substitution is permissible. -- Len Bray MD
--- NOTE | 2017-02-11 20:27 | ED MED RECONCILIATION SUMMARY ---
Patient: CORINA YATES Medication Reconciliation Report [facility] VisitID: [id number] [place] [address] 51y, M Registration Date/Time: 02/11/2017 Weight: 95.2 kg Height/Length: 73 in. BMI: 27.7 ALLERGIES: No Known Drug Allergy The patient's Home Medications are listed below: CONTINUE TAKING THE FOLLOWING MEDICATIONS: BusPIRone HCl Oral 50 mg, daily Metoprolol Tartrate Oral 50 mg, daily Sertraline HCl Oral Simvastatin Oral 20 mg, daily The source(s) of the original Home Medication information: Not obtained. The following Medications were given to the patient in the Emergency Department: IV NS IV Fluids bolus 0, then 1000 mL/hr, administered: 02/11/2017 1:14:00 PM IV NS IV Fluids bolus 0, then 1000 mL/hr, administered: 02/11/2017 3:38:00 PM The following Medications were prescribed to the patient: Ultram 50 mg: take 1-2 orally every 6 hours as needed for pain. Dispense ten (10). Substitution is permissible. -- Len Bray MD
--- NOTE | 2017-02-11 20:27 | ED MAR SUMMARY ---
..... Medication Administration Record [facility] [address] [place] [address] Patient: CORINA YATES Visit ID: [id number] 51y, M Weight: 95.2 kg Height/Length: 73 in BMI: 27.7 ALLERGIES: No Known Drug Allergy Start 13:14 02/11/2017 Kenyatta Avendano R.N., Stop 15:34 02/11/2017 Kenyatta Avendano R.N. Medication Administered: IV NS (SALINE), Dose: IV Fluids over 1 hour(s), Rate: 1000 mL/hr, Dispensed: 1000 mL bag, Site: #1 right hand. Medication Ordered: IV NS : initial bolus 1000 mL (1000 mL/hr), then 1000 mL/hr for X2 (NOW); Urgent. Start 15:38 02/11/2017 Kenyatta Avendano R.N., Stop 16:38 02/11/2017 Kenyatta Avendano R.N. Medication Administered: IV NS (SALINE), Dose: IV Fluids over 1 hour(s), Rate: 1000 mL/hr, Dispensed: 1000 mL bag, Site: #1 right hand. Medication Ordered: IV NS : initial bolus 1000 mL (1000 mL/hr), then 1000 mL/hr for X2 (NOW); Urgent.
--- NOTE | 2017-02-11 20:27 | ED MAR SUMMARY ---
..... Medication Administration Record [facility] [address] [place] [address] Patient: CORINA YATES Visit ID: [id number] 51y, M Weight: 95.2 kg Height/Length: 73 in BMI: 27.7 ALLERGIES: No Known Drug Allergy Start 13:14 02/11/2017 Kenyatta Avendano R.N., Stop 15:34 02/11/2017 Kenyatta Avendano R.N. Medication Administered: IV NS (SALINE), Dose: IV Fluids over 1 hour(s), Rate: 1000 mL/hr, Dispensed: 1000 mL bag, Site: #1 right hand. Medication Ordered: IV NS : initial bolus 1000 mL (1000 mL/hr), then 1000 mL/hr for X2 (NOW); Urgent. Start 15:38 02/11/2017 Kenyatta Avendano R.N., Stop 16:38 02/11/2017 Kenyatta Avendano R.N. Medication Administered: IV NS (SALINE), Dose: IV Fluids over 1 hour(s), Rate: 1000 mL/hr, Dispensed: 1000 mL bag, Site: #1 right hand. Medication Ordered: IV NS : initial bolus 1000 mL (1000 mL/hr), then 1000 mL/hr for X2 (NOW); Urgent.
== END 2017-02-11 16:30 | disposition home or self-care (01) ==
LOC: ED SRH 12:07
DX: R10.31 Right lower quadrant pain (principal); D70.9 Neutropenia, unspecified; I10 Essential (primary) hypertension; E78.5 Hyperlipidemia, unspecified; Z79.899 Other long term (current) drug therapy
CPT/HCPCS: 90004; 90100; 90469; 92235; 92530; 95059